=== PATIENT | female | born 1950 | race Hispanic/Latino ===

== ENCOUNTER 2021-07-15 22:26 | Emergency (ER) | payer MEDICARE ==
[2021-07-15] MEDS ORDERED: SODIUM CHLORIDE 0.9% 1000 ML 1,000 ML IV ONE (23:16)
[2021-07-15 23:33] VITALS: BP 114/47
[2021-07-15 23:57] LABS: Basophils # (Auto) 0.1 K/mm3 (0.0-0.1); Eosinophils # (Auto) 0.3 K/mm3 (0.0-0.4); Eosinophils % (Auto) 4.4 % (0.0-4.3); Hematocrit 32.3 % (30.3-42.9); Hemoglobin 10.5 gm/dl (10.1-14.3); Lymphocytes # (Auto) 1.5 K/mm3 (1.2-5.4); Mean Corpuscular HGB Conc 33 % (30-34); Mean Corpuscular Volume 92 fl (79-97); Monocytes # (Auto) 0.4 K/mm3 (0.0-0.8); Monocytes % (Auto) 6.4 % (0.0-7.3); Platelet Count 192 K/mm3 (140-440); Red Blood Count 3.51 M/mm3 (3.65-5.03)
--- NOTE | 2021-07-16 00:05 | XRay Report ---
CHEST 1 VIEW INDICATION / CLINICAL INFORMATION: Weakness STUDY TIME: 2324 COMPARISON: None available. FINDINGS: SUPPORT DEVICES: Left subclavian unipolar transvenous pacer is seen with lead tip appearing to be in satisfactory position. HEART / MEDIASTINUM: Borderline cardiomegaly. Cardiac surgical changes are noted. Pulmonary vasculari ty appears within normal limits. LUNGS / PLEURA: Left base is partially obscured by the pacer but no obvious focal infiltrates are see n. No pleural effusions are noted. No pneumothorax. ADDITIONAL FINDINGS: No significant additional findings. Signer Name: Selvin Blanton MD Signed: 07/16/2021 12:00 AM Workstation Name: [id number]
[2021-07-16 00:08] LABS: INR 0.88 (0.87-1.13)
[2021-07-16 00:21] LABS: C-Reactive Protein 0.3 mg/dL (0.00-1.30)
[2021-07-16 00:25] LABS: Alanine Aminotransferase 15 units/L (7-56); BUN/Creatinine Ratio 28; Blood Urea Nitrogen 44 mg/dL (7-17); Calcium 9.5 mg/dL (8.4-10.2); Hemolysis Index 23
[2021-07-16] MEDS ORDERED: HYDROcodone/ACETAMINOPHEN 5-325 MG TAB PO ONE (01:48)
--- NOTE | 2021-07-16 02:03 | Emergency Department Report ---
ED General Adult HPI - General Stated complaint: DIZZINESS, SOB Time Seen by Provider: 07/15/21 23:10 Source: patient Mode of arrival: Ambulatory Limitations: No Limitations - History of Present Illness Initial comments: pt is here for SOB and pain in her lgs, had recnt injury to her left ankle and on splint, pain goes to her hip and knee Location: lower extremity Radiation: non-radiation Severity scale (0 -10): 0 Worsens with: none Associated Symptoms: denies: denies other symptoms, confusion, chest pain, headaches, loss of appetite - Related Data Allergies Allergy/AdvReac Type Severity Reaction Status Date / Time meloxicam AdvReac Unknown Verified 07/15/21 23:57 ED Review of Systems ROS: Stated complaint: DIZZINESS, SOB Other details as noted in HPI Constitutional: denies: chills, fever Eyes: denies: eye pain, eye discharge, vision change ENT: denies: ear pain, throat pain Respiratory: denies: cough, shortness of breath, wheezing Cardiovascular: denies: chest pain, palpitations Endocrine: no symptoms reported Gastrointestinal: denies: abdominal pain, nausea, diarrhea Genitourinary: denies: urgency, dysuria, discharge Musculoskeletal: denies: back pain, joint swelling, arthralgia Skin: denies: rash, lesions Neurological: denies: headache, weakness, paresthesias Psychiatric: denies: anxiety, depression Hematological/Lymphatic: denies: easy bleeding, easy bruising ED Past Medical Hx - Past Medical History Hx Hypertension: Yes Hx Diabetes: Yes ED Course Vital Signs 07/15/21 23:32 Pulse Rate 72 Respiratory 16 Rate Blood Pressure 114/47 [Left] O2 Sat by Pulse 99 Oximetry ED Medical Decision Making - Lab Data Result diagrams: 07/15/21 23:32 07/15/21 23:32 - Medical Decision Making work up negative x ray clear , vss no distress Critical care attestation.: If time is entered above; I have spent that time in minutes in the direct care of this critically ill patient, excluding procedure time. ED Disposition Clinical Impression: SOB (shortness of breath) Disposition: 01 HOME / SELF CARE / HOMELESS Is pt being admited?: No Does the pt Need Aspirin: No Condition: Stable Instructions: Shortness of Breath, Adult, [id number] Referrals: PRIMARY CARE, [Primary Care Provider] - 3-5 Days
== END 2021-07-16 03:05 | disposition home or self-care (01) ==
LOC: ED 22:26
DX: R06.02 Shortness of breath (principal); I10 Essential (primary) hypertension; E11.9 Type 2 diabetes mellitus without complications
CPT/HCPCS: 36415; 71045; 80053; 82550; 83735; 83880; 84484; 85025; 85610; 86140; 96360; 99284; J7030